=== PATIENT | female | born 1990 | race Caucasian/White ===

== ENCOUNTER 2017-11-08 17:46 | Emergency (ER) | payer OTHER ==
[~2017-11-08] VITALS: Ht 172.7 cm; Wt 127.9 kg
[2017-11-08 18:07] VITALS: Ht 172.7 cm; Wt 127.9 kg
[2017-11-08 20:09] VITALS: BP 140/93
== END 2017-11-08 20:09 | disposition home or self-care (01) ==
LOC: ED 17:46
DX: O26.891 Other specified pregnancy related conditions, first trimester (principal)
CPT/HCPCS: 83880; 84439

== ENCOUNTER 2018-02-12 17:05 | Emergency (ER) | payer MEDICAID ==
[~2018-02-12] VITALS: Ht 172.7 cm; Wt 131.1 kg
[2018-02-12 17:27] VITALS: Ht 172.7 cm; Wt 131.1 kg
[2018-02-12 18:48] VITALS: BP 135/72
== END 2018-02-12 18:48 | disposition home or self-care (01) ==
LOC: ED 17:05
DX: O26.892 Other specified pregnancy related conditions, second trimester (principal); B34.9 Viral infection, unspecified; Z3A.00 Weeks of gestation of pregnancy not specified; Z87.09 Personal history of other diseases of the respiratory system